=== PATIENT | female | born 1985 | race African-American/Black ===

== ENCOUNTER 2017-10-16 08:27 | Emergency (ER) | payer OTHER ==
[~2017-10-16] VITALS: Ht 152.4 cm; Wt 86.2 kg
--- OUTSIDE RECORDS SUMMARY | 2017-10-16 08:29 | XMS REPORT ---
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 Allergies, Adverse Reactions, Alerts This patient has no known allergies or adverse reactions. Medications This patient has no known medications. Results Test Description Test Time Test Comments Text Results Atomic Results Result Comments CREATINE KINASE (CK), TOTAL AND MB 2017-06-02 13:31:00 CREATINE KINASE TOTAL (BEAKER) (test fqfx=306) 115 U/L 29-200 CREATINE KINASE-MB (BEAKER) (test ymal=192) 0.7 ng/mL 0.0-6.6 CREATINE KINASE-MB INDEX (BEAKER) (test rfxs=141) 0.6 % CK-MB Reference Range:<6.7 Normal6.7-10.0 Borderline>10.0 AbnormalTROPONIN [id number] 13:31:00* Test Item Value Reference Range Comments TROPONIN I (BEAKER) (test pmxu=526) < ng/mL 0.00-0.03 Troponin I (TnI) levels must be interpreted in the context of the presenting symptoms and the clinical findings. Elevated TnI levels indicate myocardial damage, but are not specific for ischemic heart disease. Elevated TnI levels are seen in patients with other cardiac conditions (including myocarditis and congestive heart failure), and slight TnI elevations occur in patients with other conditions, including sepsis, renal failure, acidosis, acute neurological disease, and persistent tachyarrhythmia.RAD, CHEST, 1 VIEW, NON [id number] 13:26:00Reason for exam:->CHEST PAINIs the patient ?->NoShould this be performed at the bedside?->YesFINAL REPORT HISTORY : CHEST PAIN. Comparison: None Comment: Single portable view of the chest was obtained. The cardiac silhouette size is enlarged. There may be a degree of minimal pulmonary venous congestion. No pneumothorax or pleural effusion is seen. There is some minimal right basilar patchy airspace disease. Of note, the examination is limited secondary to the patient's body habitus. Signed: Marysol Guy MDReport Verified Date/Time: 06/02/2017 13:26:31 Reading Location: [facility] C013T Transitional Reading Room C METABOLIC [id number] 13:25:00* Test Item Value Reference Range Comments SODIUM (BEAKER) (test sgpo=726) 139 meq/L 136-145 POTASSIUM (BEAKER) (test xqwf=786) 4.1 meq/L 3.5-5.1 CHLORIDE (BEAKER) (test stky=572) 107 meq/L 98-107 CO2 (BEAKER) (test rhbb=986) 24 meq/L 22-29 BLOOD UREA NITROGEN (BEAKER) (test mqqb=726) 9 mg/dL 7-21 CREATININE (BEAKER) (test rpow=882) 0.67 mg/dL 0.57-1.25 GLUCOSE RANDOM (BEAKER) (test vduf=556) 84 mg/dL 70-105 CALCIUM (BEAKER) (test snjq=218) 9.3 mg/dL 8.4-10.2 EGFR (BEAKER) (test mjqo=6589) 125 mL/min/1.73 sq m ESTIMATED GFR IS NOT ACCURATE CREATININE CLEARANCE IN PREDICTING GLOMERULAR FILTRATION RATE. ESTIMATED GFR IS NOT APPLICABLE FOR DIALYSIS PATIENTS. CBC W/PLT COUNT & AUTO [id number] 13:20:00* Test Item Value Reference Range Comments WHITE BLOOD CELL COUNT (BEAKER) (test nrnj=436) 11.1 K/ L 3.5-10.5 RED BLOOD CELL COUNT (BEAKER) (test aivy=514) 5.72 M/ L 3.93-5.22 HEMOGLOBIN (BEAKER) (test jcij=067) 10.4 GM/DL 11.2-15.7 HEMATOCRIT (BEAKER) (test dkhn=321) 34.8 % 34.1-44.9 MEAN CORPUSCULAR VOLUME (BEAKER) (test nlao=121) 60.8 fL 79.4-94.8 MEAN CORPUSCULAR HEMOGLOBIN (BEAKER) (test yaki=088) 18.2 pg 25.6-32.2 MEAN CORPUSCULAR HEMOGLOBIN CONC (BEAKER) (test smsz=318) 29.9 GM/DL 32.2- 35.5 RED CELL DISTRIBUTION WIDTH (BEAKER) (test tfdp=697) 17.6 % 11.7-14.4 PLATELET COUNT (BEAKER) (test wcyr=813) 180 K/CU MM 150-450 MEAN PLATELET VOLUME (BEAKER) (test zdyr=929) 10.6 fL 9.4-12.3 NUCLEATED RED BLOOD CELLS (BEAKER) (test jpyg=387) 0 /100 WBC 0-0 NEUTROPHILS RELATIVE PERCENT (BEAKER) (test acuz=738) 64 % LYMPHOCYTES RELATIVE PERCENT (BEAKER) (test lprj=259) 27 % MONOCYTES RELATIVE PERCENT (BEAKER) (test lriw=382) 8 % EOSINOPHILS RELATIVE PERCENT (BEAKER) (test hmyc=704) 1 % BASOPHILS RELATIVE PERCENT (BEAKER) (test eona=432) 1 % NEUTROPHILS ABSOLUTE COUNT (BEAKER) (test qhcj=788) 7.08 K/ L 1.56-6.13 LYMPHOCYTES ABSOLUTE COUNT (BEAKER) (test iazd=027) 2.96 K/ L 1.18-3.74 MONOCYTES ABSOLUTE COUNT (BEAKER) (test ptsc=342) 0.91 K/ L 0.24-0.36 EOSINOPHILS ABSOLUTE COUNT (BEAKER) (test lxth=592) 0.07 K/ L 0.04-0.36 BASOPHILS ABSOLUTE COUNT (BEAKER) (test xjuq=673) 0.05 K/ L 0.01-0.08 IMMATURE GRANULOCYTES-RELATIVE PERCENT (BEAKER) (test aciq=1769) 0 % 0-1 CREATINE KINASE (CK), TOTAL AND [id number] 12:59:00* Test Item Value Reference Range Comments CREATINE KINASE TOTAL (BEAKER) (test oqqt=386) 150 U/L 29-200 CREATINE KINASE-MB (BEAKER) (test apfz=841) 0.6 ng/mL 0.0-6.6 CREATINE KINASE-MB INDEX (BEAKER) (test tkih=306) 0.4 % Effective 06/22/2014: CK-MB Reference Range ChangeNew: 0.0-6.6 Previous: 0.0- 4.9CK-MB Reference Range:<6.7 Normal6.7-10.0 Borderline>10.0 AbnormalTROPONIN [id number] 12:59:00* Test Item Value Reference Range Comments TROPONIN I (BEAKER) (test ecko=916) < ng/mL 0.00-0.03 Effective 06/22/2014: Reference Range ChangeNew: 0.00-0.03 Previous 0.00- 0.15Troponin I (TnI) levels must be interpreted in the context of the presenting symptoms and the clinical findings. Elevated TnI levels indicate myocardial damage, but are not specific for ischemic heart disease. Elevated TnI levels are seen in patients with other cardiac conditions (including myocarditis and congestive heart failure), and slight TnI elevations occur in patients with other conditions, including sepsis, renal failure, acidosis, acute neurological disease, and persistent tachyarrhythmia.BASIC METABOLIC [id number] 12:52:00* Test Item Value Reference Range Comments SODIUM (BEAKER) (test sbyb=269) 138 meq/L 136-145 POTASSIUM (BEAKER) (test mzxg=090) 4.2 meq/L 3.5-5.1 CHLORIDE (BEAKER) (test biwy=275) 107 meq/L 98-107 CO2 (BEAKER) (test bcwg=855) 25 meq/L 22-29 BLOOD UREA NITROGEN (BEAKER) (test xznw=852) 11 mg/dL 7-21 CREATININE (BEAKER) (test dsjg=261) 0.69 mg/dL 0.57-1.25 GLUCOSE RANDOM (BEAKER) (test nspd=271) 92 mg/dL 70-105 CALCIUM (BEAKER) (test mjod=122) 9.1 mg/dL 8.4-10.2 EGFR (BEAKER) (test uzci=2476) 121 mL/min/1.73 sq m INSUFFICIENT CLINICAL DATA TO CALCULATE ESTIMATED GFR. [id number] 12:44:00* Test Item Value Reference Range Comments D-DIMER QUANTITATIVE (BEAKER) (test eazr=942) < MG/L FEU <0.50 Intended Use: The D-Dimer Assay can be used to aid in the diagnosis of Deep Vein Thrombosis (DVT) and Pulmonary Embolism Disease (PED).In patients with low pre-test probability, various studies concerning STA Liatest D-dimer test have reported that with a cutoff value of 0.50 MG/L FEU, the Negative Predictive Value (NPV) regarding the exclusion of thrombosis is within 95-100% range.URINALYSIS W/ [id number] 12:31:00* Test Item Value Reference Range Comments COLOR (BEAKER) (test vwby=356) Light Yellow CLARITY (BEAKER) (test wrzf=622) Clear SPECIFIC GRAVITY UA (BEAKER) (test rkmo=610) 1.012 1.001-1.035 PH UA (BEAKER) (test otkf=141) 6.0 5.0-8.0 PROTEIN UA (BEAKER) (test ldwg=914) Negative Negative GLUCOSE UA (BEAKER) (test ayip=256) Negative Negative KETONES UA (BEAKER) (test crae=887) Negative Negative BILIRUBIN UA (BEAKER) (test gbqb=692) Negative Negative BLOOD UA (BEAKER) (test fbbv=749) Negative Negative NITRITE UA (BEAKER) (test fcxj=432) Negative Negative LEUKOCYTE ESTERASE UA (BEAKER) (test wzqg=384) Moderate Negative UROBILINOGEN UA (BEAKER) (test zpke=590) 0.2 mg/dL 0.2-1.0 RBC UA (BEAKER) (test yivx=402) 1 /HPF WBC UA (BEAKER) (test ysyi=060) 11 /HPF SQUAMOUS EPITHELIAL (BEAKER) (test svul=541) 3 /HPF SOURCE(BEAKER) (test xzrx=2965) CBC W/PLT COUNT & AUTO [id number] 12:31:00* Test Item Value Reference Range Comments WHITE BLOOD CELL COUNT (BEAKER) (test hsyk=062) 8.1 K/ L 4.0-10.0 RED BLOOD CELL COUNT (BEAKER) (test ufsi=155) 5.53 M/ L 4.00-5.00 HEMOGLOBIN (BEAKER) (test oxou=483) 10.6 GM/DL 12.0-15.0 HEMATOCRIT (BEAKER) (test uiju=274) 34.0 % 36.0-45.0 MEAN CORPUSCULAR VOLUME (BEAKER) (test unwa=759) 61.5 fL 82.0-99.0 MEAN CORPUSCULAR HEMOGLOBIN (BEAKER) (test vuzv=092) 19.2 pg 27.0-33.0 MEAN CORPUSCULAR HEMOGLOBIN CONC (BEAKER) (test hkqn=413) 31.3 GM/DL 32.0- 36.0 RED CELL DISTRIBUTION WIDTH (BEAKER) (test onxu=163) 15.3 % 10.3-14.2 PLATELET COUNT (BEAKER) (test crgt=100) 205 K/CU MM 150-430 MEAN PLATELET VOLUME (BEAKER) (test esuh=359) 6.0 fL 6.5-10.5 NUCLEATED RED BLOOD CELLS (BEAKER) (test foql=734) 0 /100 WBC 0-0 NEUTROPHILS RELATIVE PERCENT (BEAKER) (test ldwh=107) 54 % LYMPHOCYTES RELATIVE PERCENT (BEAKER) (test zykf=952) 35 % MONOCYTES RELATIVE PERCENT (BEAKER) (test crpv=148) 8 % EOSINOPHILS RELATIVE PERCENT (BEAKER) (test qomu=487) 2 % BASOPHILS RELATIVE PERCENT (BEAKER) (test twpm=200) 1 % NEUTROPHILS ABSOLUTE COUNT (BEAKER) (test wvyk=699) 4.38 K/ L 1.80-8.00 LYMPHOCYTES ABSOLUTE COUNT (BEAKER) (test jtbv=792) 2.86 K/ L 1.48-4.50 MONOCYTES ABSOLUTE COUNT (BEAKER) (test sbxn=788) 0.66 K/ L 0.00-1.30 EOSINOPHILS ABSOLUTE COUNT (BEAKER) (test fnjn=803) 0.14 K/ L 0.00-0.50 BASOPHILS ABSOLUTE COUNT (BEAKER) (test nuyr=284) 0.07 K/ L 0.00-0.20 0.00PREGNANCY SCREEN, [id number] 12:25:00* Test Item Value Reference Range Comments TEST URINE (BEAKER) (test iqnm=169) Negative
[2017-10-16] MEDS ORDERED: IBUPROFEN 600 MG TAB PO STA (08:35)
[2017-10-16 09:03] VITALS: BP 118/63
== END 2017-10-16 09:17 | disposition home or self-care (01) ==
LOC: ER 08:27
DX: S61.012A Laceration without foreign body of left thumb without damage to nail, initial encounter (principal); W45.8XXA Other foreign body or object entering through skin, initial encounter; Y99.0 Civilian activity done for income or pay; I10 Essential (primary) hypertension
CPT/HCPCS: 99282